=== PATIENT | male | born 1990 | race Caucasian/White ===

== ENCOUNTER 2022-12-11 10:13 | Emergency (ER) | payer SELFPAY ==
[2022-12-11 11:32] LABS: CARBON DIOXIDE,CO2 28.7 mmol/L (21.0-32.0); POTASSIUM,K 4.5 mmol/L (3.5-5.1)
== END 2022-12-11 13:52 | disposition home or self-care (01) ==
LOC: MW.ED 10:13
DX: N20.0 Calculus of kidney (principal); I49.8 Other specified cardiac arrhythmias; Z72.0 Tobacco use
CPT/HCPCS: 36415; 74176; 74176-26; 80053; 81003; 83735; 85025; 93005; 93010; 99284

== ENCOUNTER 2024-03-03 08:36 | Emergency (ER) | payer OTHER | END 2024-03-03 10:05 | disposition home or self-care (01) | LOC: MW.ED 08:36 | DX: S89.91XA Unspecified injury of right lower leg, initial encounter (principal); X50.0XXA Overexertion from strenuous movement or load, initial encounter; Y93.01 Activity, walking, marching and hiking | CPT/HCPCS: 73562-26-RT; 73562-RT; 99283 ==

== ENCOUNTER 2024-05-13 10:53 | Day surgery (SDC) | payer OTHER ==
[~2024-05-13 10:53] MED LIST: Albuterol 0.083% 2.5 MG/3 ML Neb Soln NEB PRN; HYDROmorphone 1 MG/ML Syringe IVPUSH PRN; Metoclopramide 10 MG/2 ML SDV IVPUSH PRN; Morphine 2 MG/ML SYRINGE IVPUSH PRN; Naloxone 0.4 MG/ML SDV IVPUSH PRN; Ondansetron 4 MG/2 ML SDV IVPUSH PRN; ceFAZolin 2 GM in Sodium Chloride 0.9% 50 ML IV ONE; droPERidol 5 MG/2 ML SDV IVPUSH PRN; fentaNYL 50 MCG/ML SDV IVPUSH PRN
[2024-05-13] MEDS ORDERED: Propofol 200 MG/20 ML SDV ONE (11:57)
[2024-05-13] MEDS ORDERED: fentaNYL 250 MCG/5 ML SDV ONE (11:58)
[2024-05-13] MEDS ORDERED: Ketorolac 30 MG/ML SDV ONE (12:00)
[2024-05-13] MEDS ORDERED: Dexamethasone 4 MG/ML 5 ML MDV ONE (12:00)
[2024-05-13] MEDS ORDERED: Ondansetron 4 MG/2 ML SDV ONE ×2 (12:00→14:36)
[2024-05-13] MEDS: Lactated Ringers 1,000 ML IV SCH (12:00)
[2024-05-13] MEDS: Scopalamine 1mg/3day Transdermal Patch TOP ONE (12:05)
[2024-05-13] MEDS ORDERED: Scopalamine 1mg/3day Transdermal Patch ONE (12:14)
[2024-05-13] MEDS ORDERED: Bupivacaine 0.25%/EPINEPHrine 1:200,000 30 ML SDV ONE (12:15)
[2024-05-13] MEDS ORDERED: ceFAZolin 2 GM Vial ONE (13:55)
== END 2024-05-13 15:05 | disposition home or self-care (01) ==
LOC: MW.SDS 10:53
PROVIDERS: ATTEND Orthopaedic Surgery
DX: S83.211A Bucket-handle tear of medial meniscus, current injury, right knee, initial encounter (principal); X58.XXXA Exposure to other specified factors, initial encounter
CPT/HCPCS: 29881; A9270; J0131; J0690; J1100; J1885; J2405; J2704; J3010; J7120; 01400; J3490